=== PATIENT | female | born 1985 | race Caucasian/White ===

== ENCOUNTER 2025-08-16 04:51 | Emergency (ER) | payer BC ==
[~2025-08-16] VITALS: Ht 170.2 cm; Wt 56.7 kg
[2025-08-16 06:02] VITALS: BP 112/67; TEMP 98.5; O2SAT 97
[2025-08-16] MEDS ORDERED: AMOX/CLAVULANATE 875 MG TABLET ONE (06:27)
[2025-08-16] MEDS: AMOX/CLAVULANATE 875 MG TABLET PO ONE (06:27)
[2025-08-16] MEDS ORDERED: AMOX-430 PO (06:27)
[2025-08-16] MEDS ORDERED: CIPR7.5D9 RIGHT EAR (06:27)
== END 2025-08-16 06:32 | disposition home or self-care (01) ==
LOC: ER 05:02
DX: H60.91 Unspecified otitis externa, right ear (principal); Z88.8 Allergy status to other drugs, medicaments and biological substances